=== PATIENT | male | born 1985 | race Caucasian/White ===

== ENCOUNTER 2020-06-02 10:30 | Outpatient (REF) | payer OTHER, SELFPAY | END 2020-06-02 10:31 | disposition home or self-care (01) | LOC: HO.LAB 10:30 | PROVIDERS: Visit Provider Internal Medicine | DX: Z20.822 Contact with and (suspected) exposure to COVID-19 (principal) | CPT/HCPCS: 36415; C9803; U0003 ==

== ENCOUNTER 2022-11-11 05:51 | Emergency (ER) | payer MEDICAID, SELFPAY ==
[2022-11-11 06:00] VITALS: BP 129/94; PULSE 111; RESP 20; TEMP 36.3; O2SAT 97
--- NOTE | 2022-11-11 06:01 | MHC.EDTECH ---
PATIENT CAME IN VIA EMS ,PT VITALS SIGN TAKEN ,,PT WAS HOOKED UP TO [employer]INE [employer]PERATOR ,PT WAS CHANGE INTO HOSPITAL GOWN ,CALL GARCIA WITHIN REACH .
[2022-11-11 06:30] VITALS: BP 130/90; PULSE 120; RESP 16; TEMP 36.9; O2SAT 98; BMI 20.3
--- NOTE | 2022-11-11 06:37 | MHC.EDTECH ---
PATIENT BELONGINGS ARE LOCKED UP IN DECON .
[2022-11-11 07:10] VITALS: BP 129/88; PULSE 105; RESP 20; TEMP 36.5; O2SAT 97
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
[2022-11-11 08:07] LABS: MANUAL DIFF FLAG NO
[2022-11-11 08:08] LABS: Basophils Percent Auto 0.3 % (0-2); Eosinophils Absolute Auto 0.1 X10*3/uL (0.0-0.4); Eosinophils Percent Auto 0.4 % (0-4); Hematocrit 46.8 % (42.0-52.0); Hemoglobin 16.6 g/dl (14.0-18.0); Imm Gran Abs Auto 0.05 X10*3/uL (0.00-0.03); Imm Gran Pct Auto 0.4 % (0.0-0.4); Lymphocytes Absolute Auto 2.3 X10*3/uL (1.2-4.9); Lymphocytes Percent Auto 18.4 % (20-40); Mean Corpuscular HGB Conc 35.5 g/dl (31.0-36.0); Mean Corpuscular Hemoglobin 29.5 pg (27.0-33.0); Mean Corpuscular Volume 83.1 fL (80.0-98.0); Mean Platelet Volume 9.6 fL (9.4-12.4); Monocytes Absolute Auto 1.2 X10*3/uL (0.1-1.2); Monocytes Percent Auto 9.6 % (2-11); Neutrophils Absolute Auto 8.8 x10*3/uL (2.0-8.3); Neutrophils Percent Auto 70.9 % (45-73); Platelet Count 286 X10*3/uL (160-400); Red Blood Count 5.63 X10*6/uL (4.60-5.80); Red Cell Distribution Width 12.4 % (11.0-16.0); White Blood Count 12.5 X10*3/uL (4.8-10.8)
[2022-11-11 08:13] VITALS: BP 135/84; PULSE 106; RESP 18; TEMP 36.6; O2SAT 96
[2022-11-11] MEDS: cloNIDine HCL 0.1 MG TABLET PO (08:23)
[2022-11-11 08:24] VITALS: BP 124/82; PULSE 101; RESP 18; O2SAT 97
--- NOTE | 2022-11-11 08:29 | PC.NURSE ---
Report given to nurse in pod, pending security for transport.
[2022-11-11 08:33] LABS: Alanine Aminotransferase 17 U/L (0-40); Albumin Level 4.8 g/dL (3.5-5.0); Alkaline Phosphatase 55 U/L (39-117); Anion Gap 14 (12-20); Aspartate Amino Transferase 11 U/L (5-37); Bilirubin Direct 0.2 mg/dL (0.0-0.5); Bilirubin Total 0.7 mg/dL (0.0-1.0); Blood Urea Nitrogen 13 mg/dL (9-16); Calcium 10.1 mg/dL (8.4-10.2); Carbon Dioxide 20 mmol/L (22-29); Chloride 110 mmol/L (96-108); Estimated Glomerular Filt Rate > 60; Ethanol < 10 mg/dL; Glucose Random 114 mg/dL (60-115); Potassium 3.6 mmol/L (3.3-5.1); Sodium 140 mmol/L (135-145); Total Protein 7.3 g/dL (6.5-8.0)
--- NOTE | 2022-11-11 08:34 | PC.NURSE ---
Pt transferred to pod, remainder of belonging placed in decon.
[2022-11-11 08:46] LABS: TSH reflex Free T4 1.71 uIU/mL (0.32-4.0)
[2022-11-11 08:48] LABS: Appearance Urine Clear; Color Urine Yellow; Glucose Urine UA Negative (Negative); Leukocyte Esterase Urine Negative (Negative); Nitrite Urine Negative (Negative); PH 6.5 (5.0-9.0); Specific Gravity - Urine 1.025 (1.005-1.025); Urine Blood Negative (Negative); Urine Ketones 15 mg/dL (Negative); Urine Protein Trace mg/dL (Neg-Trace)
[2022-11-11 09:01] LABS: Influenza A PCR NEGATIVE (Negative); Influenza B PCR NEGATIVE (Negative); Resp Syncy Virus RNA Qual PCR NEGATIVE (Negative); SARS COV2 PCR INHOUSE NEGATIVE (Negative)
[2022-11-11 09:14] LABS: Amphetamine Screen Urine POSITIVE (Not Detect); Barbiturates, Urine Not Detected (Not Detect); Benzodiazepines Screen Urine Not Detected (Not Detect); Cannabinoid Screen Urine POSITIVE (Not Detect); Cocaine Screen Urine Not Detected (Not Detect); Fentanyl, urine POSITIVE (Not Detect); Opiate Screen Urine Not Detected (Not Detect); Phencyclidine Screen Urine Not Detected (Not Detect)
--- NOTE | 2022-11-11 09:16 | ECG_ITS ---
Test Reason : assess for prolonged QT Blood Pressure : / mmHG Vent. Rate : 095 BPM Atrial Rate : 095 BPM P-R Int : 170 ms QRS Dur : 090 ms QT Int : 346 ms P-R-T Axes : 033 030 046 degrees QTc Int : 434 ms Normal sinus rhythm Normal ECG When compared with ECG of 07-DEC-2004 15:30, Vent. rate has increased BY 33 BPM QT has lengthened Referred By: Erwin Avalos Electronically Signed By:Guerrero Fairchild
--- NOTE | 2022-11-11 10:07 | PC.NURSE ---
Initial contact with pt. pt oriented to unit. doing puzzle in common area, calm and cooperative. water provided.
[2022-11-11] MEDS: Acetaminophen 325 MG TABLET 975 MG PO (11:53)
--- NOTE | 2022-11-11 11:54 | PC.NURSE ---
pt reporting generalized body aches, provider notified, medicated per MAR for 7/10 pain.
--- NOTE | 2022-11-11 12:06 | PC.NURSE ---
Pt sitting in common area working on puzzle. Oral fluids provided.
--- NOTE | 2022-11-11 14:58 | MHC.RECOVSUP ---
Met with pt in [facility] who is here for altered mental state and pattie. Pt informs he is feeling better and is not interested in ATS at this time. T/W reviewed recovery resources with pt and encouraged to call if anything changes. pt has no other questions or concerns at this time.
--- NOTE | 2022-11-11 16:20 | PC.NURSE ---
Pt in bed, visualized on room camera.
[2022-11-11] MEDS: Nicotine Polacrilex 2 MG GUM BUCCAL (17:26)
--- NOTE | 2022-11-11 18:31 | PC.NURSE ---
Spoke to patient's mother Josefina [phone] over the phone. Pt consented to me providing mom with all information including tox screen results. Pt's mom expresses interest in sec 35 for patient. Advised to contact her local PD
--- NOTE | 2022-11-11 18:55 | MHC.CARE ---
CARE Team unable to reach disposition due to patient's current impaired state and will be seen in the morning when more alert. ED provider, Dr. Colin updated.
--- NOTE | 2022-11-12 05:13 | PC.NURSE ---
Patient slept through the night, no distress observed/reported, no behavior concerns, patient is currently not on any home medication, asymptomatic of withdrawal at this time, VSS, patient was assessed by care team, disposition is pending at this time, possibility of Section 35 by mother in the morning, will continue to monitor.
[2022-11-12 06:00] VITALS: BP 115/81; PULSE 80; RESP 17; TEMP 36.8; O2SAT 98
--- NOTE | 2022-11-12 09:14 | PC.NURSE ---
Patient resting on bed at this time, breathing even and without issue, no s/s of distress noted, patient calm and cooperative at this time.
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
--- NOTE | 2022-11-12 09:32 | MHC.CARE ---
spoke with patient's mother, she is currently at the court house pursuing a section 35. Will remain in contact with CARE team with results of her pursuit. She does report he has been using for 8 years with no hx of any JUVE tx.
--- NOTE | 2022-11-12 11:31 | PC.NURSE ---
Patient up ambulating in hallway. Patient provided with water per request.
--- NOTE | 2022-11-12 12:18 | MHC.CARE ---
patient is cleared for d/c, does not appear to meet inpatient LOC. Waiting call back from [address] clinician to confirm section 35.
--- NOTE | 2022-11-12 12:32 | MHC.CARE ---
Pari ESPANA notified that patient is cleared for knot picker cloth for section 35.
[2022-11-12 13:24] VITALS: BP 116/85; PULSE 99; RESP 17; TEMP 37.7; O2SAT 98
== END 2022-11-12 13:28 ==
PROVIDERS: Physician Assistant Medical; Emergency Provider Emergency Medicine Emergency Medical Services
DX: F11.20 Opioid dependence, uncomplicated (principal); F33.1 Major depressive disorder, recurrent, moderate; R45.851 Suicidal ideations; R41.82 Altered mental status, unspecified; R94.31 Abnormal electrocardiogram [ECG] [EKG]; Z20.822 Contact with and (suspected) exposure to COVID-19; Z20.828 Contact with and (suspected) exposure to other viral communicable diseases; Z79.899 Other long term (current) drug therapy
CPT/HCPCS: 0241U; 36415; 80048; 80076; 80307; 81003; 84443; 85025; 93005; 99285; S9485